=== PATIENT | female | born 1960 | race Caucasian/White ===

== ENCOUNTER 2017-11-30 18:04 | Emergency (ER) | payer OTHER ==
[~2017-11-30] VITALS: Ht 160 cm; Wt 59.0 kg
[~2017-11-30 18:04] MED LIST: HYDROCODONE-AP1 EAC6 PO; NORCO 5-325 TA1 EACH PO; VICODIN PO; ZOFRAN4 MG PO
[2017-11-30] MEDS ORDERED: HYDROCODONE-AP1 EAC6 PO (20:41)
[2017-11-30 20:55] VITALS: BP 112/67
== END 2017-11-30 20:55 | disposition home or self-care (01) ==
LOC: M.ERS 18:04
DX: S16.1XXA Strain of muscle, fascia and tendon at neck level, initial encounter (principal); R04.0 Epistaxis; S00.83XA Contusion of other part of head, initial encounter; G43.909 Migraine, unspecified, not intractable, without status migrainosus; M32.9 Systemic lupus erythematosus, unspecified; Z87.442 Personal history of urinary calculi; Z88.1 Allergy status to other antibiotic agents; Z88.5 Allergy status to narcotic agent; Z88.8 Allergy status to other drugs, medicaments and biological substances; V43.52XA Car driver injured in collision with other type car in traffic accident, initial encounter; Y93.I9 Activity, other involving external motion; Y92.89 Other specified places as the place of occurrence of the external cause; Y99.8 Other external cause status

== ENCOUNTER 2017-12-03 19:30 | Emergency (ER) | payer OTHER ==
[~2017-12-03] VITALS: Ht 162.6 cm; Wt 57.6 kg
[2017-12-03 20:03] LABS: HEMATOCRIT 42.8 % (37.0-47.0); HEMOGLOBIN 14.8 gm/dL (12.0-15.0); MCH 30.9 pg (26.0-34.0); MCHC 34.6 g/dL (28.0-37.0); MCV 89.3 fL (80.0-100.0); MPV 7.4 fl. (7.2-11.1); NUCLEATED RBCS 0 /100WBC; PLATELET COUNT* 188 thou/uL (150-400); RBC 4.79 mil/uL (4.20-5.00); RDW-CV 13.1 % (10.5-14.5); WBC 7.8 thou/uL (4.0-11.0)
[2017-12-03 20:09] LABS: CALCIUM 8.9 mg/dL (8.5-10.1); CREATININE 0.9 mg/dL (0.6-1.3); POTASSIUM 3.5 mmol/L (3.5-5.1)
[2017-12-03 20:14] LABS: ALBUMIN 3.7 g/dL (3.4-5.0); TOTAL BILIRUBIN 0.5 mg/dL (<0.1-1.0); TOTAL PROTEIN 7.2 g/dL (6.4-8.2)
[2017-12-03 20:30] LABS: ABSOLUTE LYMPHOCYTES 0.4 thou/uL (0.8-5.3); ABSOLUTE MONOCYTES 0.3 thou/uL (0.0-1.2); ABSOLUTE NEUTROPHILS 7.1 thou/uL (1.6-8.1)
[2017-12-03 20:31] LABS: PLATELET ESTIMATE ADEQUATE
[2017-12-03] MEDS ORDERED: ACETAMINOPHEN-1 EAC1 PO (22:26)
[2017-12-03] MEDS ORDERED: ZOFRAN ODT4 MG PO (22:26)
[2017-12-03 22:45] VITALS: BP 120/66
== END 2017-12-03 22:46 | disposition home or self-care (01) ==
LOC: M.ERS 19:30
PROVIDERS: Family Medicine
DX: S06.0X9A Concussion with loss of consciousness of unspecified duration, initial encounter (principal); M32.9 Systemic lupus erythematosus, unspecified; Z87.442 Personal history of urinary calculi; Z90.710 Acquired absence of both cervix and uterus; Z88.1 Allergy status to other antibiotic agents; Z88.5 Allergy status to narcotic agent; Z88.8 Allergy status to other drugs, medicaments and biological substances; V49.9XXA Car occupant (driver) (passenger) injured in unspecified traffic accident, initial encounter; Y93.89 Activity, other specified; Y92.89 Other specified places as the place of occurrence of the external cause; Y99.8 Other external cause status

== ENCOUNTER → 2017-12-28 | Outpatient (CLI) | payer OTHER ==
[~2017-12-28] MED LIST changes: +ACETAMINOPHEN-1 EAC1 PO; +ZOFRAN ODT4 MG PO
== END ==
LOC: M.RAD 10:21
DX: M79.662 Pain in left lower leg (principal); M79.89 Other specified soft tissue disorders

== ENCOUNTER → 2018-03-30 | Outpatient (CLI) | payer OTHER ==
--- NOTE | 2018-04-07 12:34 | EEG ---
[address] [address] EEG STUDY REPORT Name: BRODY JOHNSON Room: [facility]#: [id number] Admission: 03/30/18 Attend Phys: Jeremiah Andujar MD Discharge: Date of : 60 Report #: [id number] THIS REPORT FOR: //name// CC: Wilmar Andujar DATE OF SERVICE: 04/01/2018 This patient is being evaluated for possibility of concussion. The patient's EEG was done by placing the electrode by standard 10-20 system of electrode placement. Both referential and sequential montages were used for recording. Background activity in this patient's EEG is about 10 Hz and 40 microvolt. It is a symmetrical activity. The patient went to sleep that is associated with bilaterally symmetrical sleep spindle and vertex sharp waves. Photic stimulation is unremarkable. Throughout the record, no active epileptiform activity was noticed. IMPRESSION: This patient's EEG is unremarkable. Thank you very much for this referral. <ELECTRONICALLY SIGNED> By: Jeremiah Andujar MD 04/07/18 1234 1434 [id number] Andujar MD /nt
== END ==
LOC: M.CRD 07:12 → M.MRI 14:30
DX: N20.0 Calculus of kidney (principal); F07.81 Postconcussional syndrome; R42 Dizziness and giddiness

== ENCOUNTER → 2018-05-02 | Outpatient (CLI) | payer OTHER ==
[2018-05-02 15:49] LABS: ANION GAP 10 mmol/L (7-16); BUN 22 mg/dL (7-18); CALCIUM 9.1 mg/dL (8.5-10.1); CHLORIDE 103 mmol/L (98-107); CHOLESTEROL 200 mg/dL (<200); CO2 27 mmol/L (21-32); CREATININE 0.8 mg/dL (0.6-1.3); GLUCOSE 97 mg/dL (70-99); HDL CHOLESTEROL 85 mg/dL (>40); LDL CHOLESTEROL 104 mg/dL (<100); POTASSIUM 4.2 mmol/L (3.5-5.1); SODIUM 140 mmol/L (136-145); TC:HDL 2.4 Ratio (Not establshd); TRIGLYCERIDE 58 mg/dL (<150); VLDL 12 mg/dL (<40)
[2018-05-02 15:50] LABS: SERUM ASSESSMENT Clear
== END ==
LOC: M.LAB 10:44
PROVIDERS: Psychiatry & Neurology Neuromuscular Medicine
DX: F07.81 Postconcussional syndrome (principal); R42 Dizziness and giddiness; Z90.710 Acquired absence of both cervix and uterus; Z79.899 Other long term (current) drug therapy; Z88.8 Allergy status to other drugs, medicaments and biological substances

== ENCOUNTER → 2018-07-14 | Outpatient (CLI) | payer OTHER ==
[~2018-07-14] MED LIST changes: +ATIVAN1 MG PO
[2018-07-14 12:43] LABS: CREATININE 0.8 mg/dL (0.6-1.3)
== END ==
LOC: M.LAB 07-11 12:45 → M.MRI 07-11 13:30 → M.LAB 12:15
PROVIDERS: Psychiatry & Neurology Neuromuscular Medicine
DX: R93.89 Abnormal findings on diagnostic imaging of other specified body structures (principal)

== ENCOUNTER 2018-07-15 17:56 | Inpatient (IN) | payer OTHER ==
[~2018-07-15] VITALS: Ht 162.6 cm; Wt 70.0 kg
[~2018-07-15 17:56] MED LIST changes: -ATIVAN1 MG PO
[2018-07-15 18:10] VITALS: BP 132/87
[2018-07-15] MEDS ORDERED: ATIVAN1 MG PO (18:13)
[2018-07-15 18:28] LABS: ABSOLUTE EOSINOPHILS 0.1 thou/uL (0.0-0.7); ABSOLUTE LYMPHOCYTES 1.7 thou/uL (0.8-5.3); ABSOLUTE MONOCYTES 0.4 thou/uL (0.0-1.2); ABSOLUTE NEUTROPHILS 3.2 thou/uL (1.6-8.1); BASOPHILS 0.9 %; HEMATOCRIT 40.5 % (37.0-47.0); HEMOGLOBIN 13.8 gm/dL (12.0-15.0); LYMPHOCYTES 30.4 %; MCH 30.6 pg (26.0-34.0); MCHC 33.9 g/dL (28.0-37.0); MCV 90.3 fL (80.0-100.0); MONOCYTES 7.6 %; MPV 7.4 fl. (7.2-11.1); NUCLEATED RBCS 0 /100WBC; PLATELET COUNT* 223 thou/uL (150-400); POLYS 59.1 %; RBC 4.49 mil/uL (4.20-5.00); RDW-CV 12.8 % (10.5-14.5); WBC 5.4 thou/uL (4.0-11.0)
[2018-07-15 18:34] LABS: CALCIUM 8.8 mg/dL (8.5-10.1)
[2018-07-15 18:39] LABS: ALBUMIN 3.4 g/dL (3.4-5.0); TOTAL BILIRUBIN 0.1 mg/dL (<0.1-1.0); TOTAL PROTEIN 6.7 g/dL (6.4-8.2)
[2018-07-15 18:55] LABS: URINE BILIRUBIN NEGATIVE (Negative); URINE BLOOD 3+ (Negative); URINE COLOR YELLOW; URINE GLUCOSE-RANDOM NEGATIVE (Negative); URINE KETONES NEGATIVE (Negative); URINE LEUKOCYTES-REFLEX NEGATIVE (Negative); URINE NITRITE-REFLEX NEGATIVE (Negative); URINE PROTEIN NEGATIVE (Negative); URINE UROBILINOGEN 0.2 E.U./dl (0.2-1.0)
[2018-07-15 18:56] LABS: URINE CLARITY HAZY
[2018-07-15 19:04] LABS: SQUAMOUS 0-3 Few /LPF (0-3); URINE WBC-REFLEX None Seen /HPF (0-5)
[2018-07-15 19:05] LABS: BACTERIA-REFLEX None Seen /HPF (None Seen); CASTS None Seen /LPF (None Seen); CRYSTALS None Seen /LPF (None Seen); URINE RBC >20 Many /HPF (0-2)
[2018-07-15 20:34] VITALS: BP 110/71
[2018-07-15 21:53] VITALS: BP 119/64
--- NOTE | 2018-07-16 05:21 | NUR ---
REPORT RECIEVED FROM ER. PT ADMITTED TO ROOM 309. PT ORIENTED TO ROOM, CALL LIGHT SHOWN, FALL AGREEMENT WENT OVER, PT STATED UNDERSTANDING. ADMISSION AT DOCUMENTED. IV PATENT, FLUIDS INFUSING. PT REPORTED HER PAIN HAS IMPROVED SINCE ADMISSION AND DID NOT WANT ANY PAIN MEDICATIONS THIS SHIFT. PT NPO AFTER 0000. WILL CONTINUE WITH PLAN OF CARE.
[2018-07-16 08:00] VITALS: BP 112/60
[2018-07-16] MEDS ORDERED: ZOFRAN ODT4 MG PO (09:09)
[2018-07-16] MEDS ORDERED: ACETAMINOPHEN-1 EAC1 PO (09:09)
[2018-07-16 09:21] VITALS: BP 112/60
--- NOTE | 2018-07-16 10:20 | NUR ---
DISCHARGE NOTE - PT DISCHARGED AT THIS TIME. IV REMOVED S DIFFICULTY. NO REVIEWED DISCHARGE INSTRUCTIONS WITH PT. NO QUESTIONS.
== END 2018-07-16 10:20 | disposition home or self-care (01) | DRG 694 ==
LOC: M.ERS 17:56 → M.3W 19:15 → M.TBA-ER 19:15 → M.3W 21:29
PROVIDERS: Physician Assistant; ADMIT Internal Medicine
DX: N13.2 Hydronephrosis with renal and ureteral calculous obstruction (principal); M32.9 Systemic lupus erythematosus, unspecified; Z86.018 Personal history of other benign neoplasm; Z90.710 Acquired absence of both cervix and uterus; Z87.828 Personal history of other (healed) physical injury and trauma; Z79.899 Other long term (current) drug therapy; Z88.1 Allergy status to other antibiotic agents; Z88.8 Allergy status to other drugs, medicaments and biological substances

== ENCOUNTER → 2018-07-15 | Outpatient (CLI) | payer OTHER | LOC: M.CT 07:11 → M.CRD 07-20 15:00 | DX: N20.1 Calculus of ureter (principal); N20.0 Calculus of kidney; R91.1 Solitary pulmonary nodule ==

== ENCOUNTER → 2018-07-19 | Outpatient (CLI) | payer OTHER ==
[~2018-07-19] MED LIST changes: +ATIVAN1 MG PO
== END ==
LOC: M.RAD 08:31
DX: N20.2 Calculus of kidney with calculus of ureter (principal)

== ENCOUNTER → 2018-08-02 | Outpatient (CLI) | payer OTHER | LOC: M.RAD 20:46 | DX: N20.2 Calculus of kidney with calculus of ureter (principal) ==

== ENCOUNTER 2018-08-03 15:48 | Emergency (ER) | payer OTHER ==
[~2018-08-03] VITALS: Ht 160 cm; Wt 63.5 kg
[2018-08-03 15:56] VITALS: BP 126/82
== END 2018-08-03 16:31 | disposition left against medical advice (07) ==
LOC: M.ERS 15:48
DX: Z53.21 Procedure and treatment not carried out due to patient leaving prior to being seen by health care provider (principal)

== ENCOUNTER → 2018-08-19 | Outpatient (CLI) | payer OTHER | LOC: M.RAD 11:43 | DX: N20.0 Calculus of kidney (principal); R19.5 Other fecal abnormalities ==

== ENCOUNTER → 2018-11-09 | Outpatient (CLI) | payer OTHER | LOC: M.MRI 12:11 | DX: D33.3 Benign neoplasm of cranial nerves (principal); R22.0 Localized swelling, mass and lump, head ==

== ENCOUNTER 2019-08-02 15:27 | Emergency (ER) | payer OTHER ==
[~2019-08-02] VITALS: Ht 162.6 cm; Wt 59.0 kg
[2019-08-02] MEDS ORDERED: PROAIR HFA8.5 GM INH (15:45)
[2019-08-02] MEDS ORDERED: MUCINEX600 MG PO (15:45)
[2019-08-02] MEDS ORDERED: AZITHROMYCIN500 MG PO (15:45)
[2019-08-02 16:17] LABS: INFLUENZA A ANTIGEN Positive (Negative); INFLUENZA B ANTIGEN Negative (Negative)
[2019-08-02] MEDS ORDERED: MEDROL DOSPAK21 TA1 PO (16:53)
[2019-08-02] MEDS ORDERED: PROMETHAZINE-D473 M1 PO (16:53)
[2019-08-02 17:00] VITALS: BP 133/84
== END 2019-08-02 17:01 | disposition home or self-care (01) ==
LOC: M.ERS 15:27
PROVIDERS: Nurse Practitioner Family
DX: J40 Bronchitis, not specified as acute or chronic (principal); M32.9 Systemic lupus erythematosus, unspecified; Z88.1 Allergy status to other antibiotic agents; Z88.8 Allergy status to other drugs, medicaments and biological substances; Z87.442 Personal history of urinary calculi; Z90.710 Acquired absence of both cervix and uterus

== ENCOUNTER → 2019-08-29 | Outpatient (CLI) | payer OTHER ==
[~2019-08-29] MED LIST changes: +AZITHROMYCIN500 MG PO; +MEDROL DOSPAK21 TA1 PO; +MUCINEX600 MG PO; +PROAIR HFA8.5 GM INH; +PROMETHAZINE-D473 M1 PO
== END ==
LOC: M.MRI 07:09
DX: Z12.31 Encounter for screening mammogram for malignant neoplasm of breast (principal); N64.89 Other specified disorders of breast; R92.1 Mammographic calcification found on diagnostic imaging of breast; D33.3 Benign neoplasm of cranial nerves; R90.82 White matter disease, unspecified; J34.89 Other specified disorders of nose and nasal sinuses

== ENCOUNTER → 2019-12-08 | Outpatient (CLI) | payer OTHER | LOC: M.LAB 15:52 | DX: Z11.59 Encounter for screening for other viral diseases (principal) ==

== ENCOUNTER → 2020-03-06 | Outpatient (CLI) | payer OTHER | LOC: M.CT 07:30 | PROVIDERS: ATTEND Nurse Practitioner Family | DX: N20.0 Calculus of kidney (principal); N83.202 Unspecified ovarian cyst, left side; R19.5 Other fecal abnormalities; Z90.710 Acquired absence of both cervix and uterus; Z87.442 Personal history of urinary calculi ==

== ENCOUNTER → 2020-04-09 | Outpatient (CLI) | payer OTHER ==
[2020-04-09 12:19] LABS: ABSOLUTE BASOPHILS 0.1 thou/uL (0.0-0.2); ABSOLUTE EOSINOPHILS 0.1 thou/uL (0.0-0.7); ABSOLUTE LYMPHOCYTES 1.2 thou/uL (0.8-5.3); ABSOLUTE MONOCYTES 0.3 thou/uL (0.0-1.2); ABSOLUTE NEUTROPHILS 4.7 thou/uL (1.6-8.1); EOSINOPHILS 1.2 %; HEMATOCRIT 45.7 % (37.0-47.0); HEMOGLOBIN 15.5 gm/dL (12.0-15.0); MCH 31.1 pg (26.0-34.0); MCV 91.5 fL (80.0-100.0); MONOCYTES 5.1 %; NUCLEATED RBCS 0 /100WBC; PLATELET COUNT* 237 thou/uL (150-400); POLYS 73.7 %; RDW-CV 13.2 % (10.5-14.5); WBC 6.4 thou/uL (4.0-11.0)
[2020-04-09 12:29] LABS: ALBUMIN 3.9 g/dL (3.4-5.0); CALCIUM 8.9 mg/dL (8.5-10.1); CREATININE 0.8 mg/dL (0.6-1.3); POTASSIUM 4.7 mmol/L (3.5-5.1); TOTAL BILIRUBIN 0.3 mg/dL (<0.1-1.0); TOTAL PROTEIN 7.4 g/dL (6.4-8.2)
== END ==
LOC: M.LAB 09:51
PROVIDERS: ATTEND Internal Medicine Gastroenterology
DX: Z01.812 Encounter for preprocedural laboratory examination (principal); Z20.828 Contact with and (suspected) exposure to other viral communicable diseases; R19.4 Change in bowel habit

== ENCOUNTER → 2020-04-15 | Outpatient (CLI) | payer OTHER | LOC: M.LAB 19:32 | PROVIDERS: ATTEND Nurse Practitioner Family | DX: Z01.812 Encounter for preprocedural laboratory examination (principal); Z20.828 Contact with and (suspected) exposure to other viral communicable diseases ==

== ENCOUNTER → 2020-09-18 | Outpatient (CLI) | payer OTHER | LOC: M.MRI 07:16 | PROVIDERS: ATTEND Nurse Practitioner Family | DX: I67.82 Cerebral ischemia (principal); D33.3 Benign neoplasm of cranial nerves; G93.89 Other specified disorders of brain ==

== ENCOUNTER → 2021-03-17 | Outpatient (CLI) | payer OTHER ==
[2021-03-17 12:16] LABS: ABSOLUTE BASOPHILS 0.1 thou/uL (0.0-0.2); ABSOLUTE EOSINOPHILS 0.1 thou/uL (0.0-0.7); ABSOLUTE LYMPHOCYTES 1.5 thou/uL (0.8-5.3); ABSOLUTE MONOCYTES 0.4 thou/uL (0.0-1.2); ABSOLUTE NEUTROPHILS 1.9 thou/uL (1.6-8.1); BASOPHILS 1.3 %; EOSINOPHILS 1.8 %; HEMATOCRIT 42.4 % (37.0-47.0); HEMOGLOBIN 13.9 gm/dL (12.0-15.0); LYMPHOCYTES 37.4 %; MCH 29.6 pg (26.0-34.0); MCHC 32.8 g/dL (28.0-37.0); MCV 90.2 fL (80.0-100.0); MONOCYTES 9.8 %; MPV 7.2 fl. (7.2-11.1); NUCLEATED RBCS 0 /100WBC; PLATELET COUNT* 214 thou/uL (150-400); POLYS 49.7 %; RDW-CV 13.6 % (10.5-14.5); WBC 3.9 thou/uL (4.0-11.0)
[2021-03-17 12:47] LABS: ALBUMIN 4.1 g/dL (3.4-5.0); CALCIUM 9.2 mg/dL (8.5-10.1); CREATININE 0.9 mg/dL (0.6-1.3); POTASSIUM 4.6 mmol/L (3.5-5.1); TOTAL BILIRUBIN 0.3 mg/dL (<0.1-1.0); TOTAL PROTEIN 7.1 g/dL (6.4-8.2)
== END ==
LOC: M.LAB 11:53
PROVIDERS: ATTEND Nurse Practitioner Family
DX: Z00.00 Encounter for general adult medical examination without abnormal findings (principal); I10 Essential (primary) hypertension; R53.83 Other fatigue; D49.6 Neoplasm of unspecified behavior of brain

== ENCOUNTER → 2021-07-15 | Outpatient (CLI) | payer OTHER ==
[2021-07-15 09:01] LABS: ABSOLUTE EOSINOPHILS 0.1 thou/uL (0.0-0.7); ABSOLUTE LYMPHOCYTES 0.9 thou/uL (0.8-5.3); ABSOLUTE MONOCYTES 0.3 thou/uL (0.0-1.2); ABSOLUTE NEUTROPHILS 2.9 thou/uL (1.6-8.1); BASOPHILS 0.7 %; EOSINOPHILS 1.2 %; HEMATOCRIT 43.1 % (37.0-47.0); HEMOGLOBIN 14.2 gm/dL (12.0-15.0); LYMPHOCYTES 22.1 %; MCV 90.9 fL (80.0-100.0); MONOCYTES 7.3 %; MPV 7.2 fl. (7.2-11.1); NUCLEATED RBCS 0 /100WBC; PLATELET COUNT* 226 thou/uL (150-400); POLYS 68.7 %; RBC 4.74 mil/uL (4.20-5.00); RDW-CV 13.2 % (10.5-14.5); WBC 4.2 thou/uL (4.0-11.0)
[2021-07-15 09:24] LABS: ALBUMIN 3.9 g/dL (3.4-5.0); ALKALINE PHOSPHATASE 97 U/L (46-116); ANION GAP 7 mmol/L (7-16); BUN 20 mg/dL (7-18); CALCIUM 9.3 mg/dL (8.5-10.1); CHLORIDE 106 mmol/L (98-107); CO2 31 mmol/L (21-32); CREATININE 0.9 mg/dL (0.6-1.3); GLUCOSE 92 mg/dL (70-99); POTASSIUM 4.3 mmol/L (3.5-5.1); SGOT 17 U/L (15-37); SGPT 24 U/L (30-65); SODIUM 144 mmol/L (136-145); TOTAL BILIRUBIN 0.3 mg/dL (<0.1-1.0); TOTAL PROTEIN 7.5 g/dL (6.4-8.2)
[2021-07-15 09:27] LABS: SERUM ASSESSMENT Clear
[2021-07-15 09:38] LABS: CHOLESTEROL 210 mg/dL (<200); HDL CHOLESTEROL 88 mg/dL (>40); LDL CHOLESTEROL 115 mg/dL (<100); TC:HDL 2.4 Ratio (Not establshd); TRIGLYCERIDE 36 mg/dL (<150); VLDL 7 mg/dL (<40)
[2021-07-16 04:06] LABS: GLYCOHEMOGLOBIN (HGB A1C) 5.8 % (4.8-5.6)
== END ==
LOC: M.CT 08:00 → M.LAB 08:07
PROVIDERS: ATTEND Nurse Practitioner Family
DX: Z00.01 Encounter for general adult medical examination with abnormal findings (principal); N20.0 Calculus of kidney; D49.1 Neoplasm of unspecified behavior of respiratory system; R05.3 Chronic cough; M32.19 Other organ or system involvement in systemic lupus erythematosus; G89.29 Other chronic pain; R49.0 Dysphonia

== ENCOUNTER 2021-07-24 17:51 | Emergency (ER) | payer OTHER ==
[~2021-07-24] VITALS: Ht 162.6 cm; Wt 59.0 kg
[2021-07-24 19:00] LABS: INFLUENZA A ANTIGEN Negative (Negative); INFLUENZA B ANTIGEN Negative (Negative)
[2021-07-24] MEDS ORDERED: APAP W/CODEINE1 TA2 PO (20:22)
[2021-07-24 20:34] LABS: URINE BILIRUBIN NEGATIVE (Negative); URINE BLOOD 1+ (Negative); URINE CLARITY CLEAR; URINE COLOR YELLOW; URINE GLUCOSE-RANDOM NEGATIVE (Negative); URINE KETONES 1+ (Negative); URINE LEUKOCYTES-REFLEX NEGATIVE (Negative); URINE NITRITE-REFLEX NEGATIVE (Negative); URINE PROTEIN NEGATIVE (Negative); URINE SPECIFIC GRAVITY 1.025 (1.005-1.030); URINE UROBILINOGEN 0.2 E.U./dl (0.2-1.0)
[2021-07-24 20:40] LABS: BACTERIA-REFLEX None Seen /HPF (None Seen); CASTS None Seen /LPF (None Seen); CRYSTALS None Seen /LPF (None Seen); SQUAMOUS 0-3 Few /LPF (0-3); URINE RBC 0-2 Rare /HPF (0-2); URINE WBC-REFLEX 0-5 Rare /HPF (0-5)
[2021-07-24 21:05] VITALS: BP 125/70
--- NOTE | 2021-07-25 09:24 | EKG ---
[place] [address] ELECTROCARDIOGRAM REPORT Name: BRODY JOHNSON Room: [facility]#: [id number] Admission: 07/24/21 Attend Phys: Discharge: 07/24/21 Date of : 60 Date of Service: 07/24/211820 Report #: [id number] THIS REPORT FOR: //name// [facility] ED Test Date: 2021-07-24 Test Time: 18:21:14 Pat Name: BRODY JOHNSON Department: Room: Gender: F Manager Infrastructure: TDS : 1960 Requested By: Hayde Arrieta Order Number: [id number] MD: Sam Calzada Measurements Intervals [place] Rate: 108 P: 56 MI: 150 QRS: 70 QRSD: 82 T: -12 QT: 304 QTc: 408 Interpretive Statements Sinus tachycardia Borderline T wave abnormalities Compared to ECG 04/09/2011 12:03:56 T-wave abnormality now present Sinus rate has increased Sinus arrhythmia no longer present Electronically Signed On 07-25-2021 9:24:39 PHARMACY TECHNICIAN INSTRUCTOR by Sam Calzada [email or web address] <ELECTRONICALLY SIGNED> By: Sam Calzada MD, [facility] 07/25/21 0924 182 182 Sam Calzada MD, [facility] /EPI
== END 2021-07-24 21:05 | disposition home or self-care (01) ==
LOC: M.ERS 17:51
PROVIDERS: Physician Assistant
DX: U07.1 COVID-19 (principal); R31.9 Hematuria, unspecified; Z87.442 Personal history of urinary calculi; Z90.711 Acquired absence of uterus with remaining cervical stump; Z79.899 Other long term (current) drug therapy; Z79.2 Long term (current) use of antibiotics; Z88.1 Allergy status to other antibiotic agents